=== PATIENT | male | born 1995 | race Hispanic/Latino ===

== ENCOUNTER 2017-10-22 20:34 | Emergency (ER) | payer SELFPAY ==
[~2017-10-22] VITALS: Ht 177.8 cm; Wt 102.1 kg
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
[2017-10-22 23:18] VITALS: BP 136/84
== END 2017-10-22 23:22 | disposition home or self-care (01) ==
LOC: ER 20:34
DX: M54.2 Cervicalgia (principal); S16.1XXA Strain of muscle, fascia and tendon at neck level, initial encounter; M54.6 Pain in thoracic spine; S23.3XXA Sprain of ligaments of thoracic spine, initial encounter; V43.53XA Car driver injured in collision with pick-up truck in traffic accident, initial encounter; Y92.488 Other paved roadways as the place of occurrence of the external cause; J45.909 Unspecified asthma, uncomplicated
CPT/HCPCS: 72040; 72070; 99283